=== PATIENT | male | born 1995 | race Hispanic/Latino ===

== ENCOUNTER 2019-09-19 11:08 | Emergency (ER) | payer BC ==
[~2019-09-19] VITALS: Ht 165.1 cm; Wt 64.4 kg
--- OUTSIDE RECORDS SUMMARY | 2019-09-19 11:11 | XMS REPORT ---
[facility] Address Unknown Phone Unavailable Care Team Providers Care Coremaker Bench Name Role Phone Unavailable Unavailable Payers Payer Name Policy Type Policy Number Effective Date Expiration Date Problems This patient has no known problems. Allergies, Adverse Reactions, Alerts Allergy Name Allergy Type Status Severity Reaction(s) Onset Date Inactive Date Treating Clinician Comments No Known Allergies DA Active U 2018-10-03 00:00:00 No Known Allergies DA Active U 2011-01-24 00:00:00 Medications This patient has no known medications. Results Test Description Test Time Test Comments Text Results Atomic Results Result Comments [facility] 2018-10-09 16:01:00 RUN DATE: 10/09/18 [facility] PAGE 1 RUN TIME: 1601 Specimen Inquiry RUN USER: INTERFACE PATIENT: ANG ESPANA LOC: ROHINI #: [id number] AGE/SX: 22/M ROOM: [facility] RE10/03/18[facility] DR: Stanley Robles MD : 97 BED: A DIS: 10/07/18 STATUS: DIS IN TLOC: SPEC #: [id number] RECD: 10/08/18 STATUS: [facility] #: [id number] NATHANIEL: 10/06/18 [facility] DR: Yadira Mata MD ENTERED: 10/08/18 SP TYPE: TERM ILEUM OTHR DR: Bhavin Santamaria MD ORDERED: GROSS COPIES TO: Bhavin Santamaria MD [address] [place] [address] Yadira Mata MD [address] [place] [address] PROCED URES: GROSS (10/09/18-1225) TISSUES: 1. ILEUM, NOS - TERMINAL BX 2. RIGHT COLON - BX 3. LEFT COLON - BX CLINICAL HISTORY COLLECTION DATE: 10/06/2018 RECTAL BLEEDING; COLITIS; ABDOMINAL PAIN POST-OP DIAGNOSIS: COLITIS COMMENT Intradepartmental consultation: DMW FINAL DIAGNOSIS Terminal ileum, biopsy: SMALL BOWEL MUCOSA WITH UNREMARKABLE VILLOUS ARCHITECTURE, PROMINENT LYMPHOID AGGREGATES, AND PATCHY MILD ACUTE INFLAMMATION NEGATIVE FOR MALIGNANCY Right colon, biopsy: ACUTE COLITIS WITH CRYPT DISTORTION AND CRYPT ABSCESSES COMPATIBLE WITH INFLAMMATORY BOWEL DISEASE REACTIVE EPITHELIAL CHANGE PRESENT NEGATIVE FOR DYSPLASIA AND MALIGNANCY CONTINUED ON NEXT PAGE RUN DATE: 10/09/18 [facility] PAGE 2 RUN TIME: 1601 Specimen Inquiry RUN USER: INTERFACE SPEC #: [id number] PATIENT: ANG ESPANA #[id number] (Continued) FINAL DIAGNOSIS (Continued) Left colon, biopsy: ACUTE COLITIS WITH CRYPT DISTORTION AND CRYPT ABSCESSES COMPATIBLE WITH INFLAMMATORY BOWEL DISEASE REACTIVE EPITHELIAL CHANGE PRESENT NEGATIVE FOR DYSPLASIA AND MALIGNANCY RRB/gm D [phone] MACROSCOPIC The first specimen is received in formalin, labeled with the patient's name, identified as "terminal ileum biopsy", and consists of mesa biopsy material measuring 0.4 cm in aggregate, sumbmitted as (1). The second specimen is received in formalin, labeled with the patient's name, identified as "biopsy right colon", and consists of multiple mesa biopsy fragments measuring 0.5 cm in aggregate, submitted as (2). The third specimen is received in formalin, labeled with the patient's name, identified as "left colon biopsy", and consists of mesa biopsy material measuring 0.6 cm in aggregate, submitted as (3). GROSS PERFORMED AT [facility] [address] [place] [address], [place] [address] (p)[phone] MICROSCOPIC MICROSCOPIC PERFORMED AT [facility] All of the stains, including any controls performed, stain appropriately. [facility] [address] [facility], [place] [address] [phone])[phone] PERFORMING SITE Processed at: [facility] [place] [address] [place] [phone] CONTINUED ON NEXT PAGE RUN DATE: 10/09/18 [facility] PAGE 3 RUN TIME: 1601 Specimen Inquiry RUN USER: INTERFACE SPEC #: [id number] PATIENT: STEPHANIE ESPANAFRANCINE #[id number] (Continued) PERFORMING SITE (Continued) [phone] Signed SIGNATURE ON FILE Anibal Daley 10/09/18 1601 END OF REPORT
--- NOTE | 2019-09-19 11:20 | NUR ---
PATIENT ON PHONE ENTIRE TIME. REFERED QUESTIONS TO HIS MOTHER REGARDING HIS MEDICAL CARE AND WHEN ASKED WHERE HIS PAIN WAS
--- NOTE | 2019-09-19 11:21 | NUR ---
WHEN PATIENT ASKED IF HE IS LISTENTING HE STATED, "NOT REALLY"
[2019-09-19 12:19] LABS: CLARITY,URINE CLEAR (CLEAR); COLOR,URINE YELLOW (YELLOW)
[2019-09-19 12:19] LABS: BASOPHILS % 0.3 % (0.0-1.0); EOSINOPHILS # (AUTO) 0.2 (0.0-0.4); EOSINOPHILS % 1.7 % (0.0-6.0); HEMATOCRIT 36.8 % (38.2-49.6); HEMOGLOBIN 10.9 g/dL (14.0-18.0); LYMPHOCYTES # (AUTO) 1.5 (1.0-3.2); MEAN CORPUSCULAR HEMOGLOBIN 23.3 pg (28-32); MEAN CORPUSCULAR HGB CONC 29.6 g/dL (31-35); MEAN CORPUSCULAR VOLUME 78.6 fL (81-99); MONOCYTES # (AUTO) 1.2 (0.2-0.8); MONOCYTES % 13.2 % (4.4-11.3); NEUTROPHILS # (AUTO) 6.4 (2.1-6.9); NEUTROPHILS % 68.2 % (38.7-80.0); PLATELET COUNT 218 x10e3/uL (140-360); RED BLOOD COUNT 4.68 x10e6/uL (4.3-5.7); RED CELL DISTRIBUTION WIDTH 14.9 % (11.7-14.4)
[2019-09-19 12:20] LABS: BILIRUBIN,URINE NEGATIVE (NEGATIVE); KETONES,URINE NEGATIVE (NEGATIVE); LEUKOCYTE ESTERASE ,URINE NEGATIVE (NEGATIVE); NITRITE,URINE NEGATIVE (NEGATIVE); PROTEIN,URINE DIPSTICK 1+ (NEGATIVE); URINE UROBILINOGEN 0.2 mg/dL (0.2 - 1)
[2019-09-19 12:25] LABS: BACTERIA,URINE FEW /HPF; EPITHELIAL CELLS,URINE FEW /LPF; MUCUS,URINE MODERATE (RARE); RBC,URINE 0-5 /HPF (0-5); WBC,URINE (MAN) 0-5 /HPF (0-5)
[2019-09-19 12:29] LABS: INR 0.97; PARTIAL THROMBOPLASTIN TIME 29.2 seconds (23.8-35.5); PROTHROMBIN TIME 13.4 seconds (11.9-14.5)
[2019-09-19 12:39] LABS: ALANINE AMINOTRANSFERASE 9 IU/L (0-55); ALBUMIN 3.5 g/dL (3.5-5.0); ALBUMIN/GLOBULIN RATIO 1.1 (0.8-2.0); ALKALINE PHOSPHATASE 81 IU/L (40-150); AMYLASE 41 U/L (25-125); ANION GAP 11.8 mmol/L (8-16); BLOOD UREA NITROGEN 5 mg/dL (7-26); BUN/CREATININE RATIO 6 (6-25); CALCIUM 8.8 mg/dL (8.4-10.2); CARBON DIOXIDE 26 mmol/L (22-29); CHLORIDE 104 mmol/L (98-107); CREATININE, SERUM 0.86 mg/dL (0.72-1.25); EST GLOMERULAR FILTRATION RATE > 60 ML/MIN (60-); GLUCOSE 93 mg/dL (74-118); LIPASE 17 U/L (8-78); MAGNESIUM 1.9 MG/DL (1.3-2.1); POTASSIUM 3.8 mmol/L (3.5-5.1); SODIUM 138 mmol/L (136-145)
[2019-09-19 13:09] VITALS: BP 130/73
== END 2019-09-19 13:14 | disposition home or self-care (01) ==
LOC: ER 11:08
DX: M54.5 Low back pain (principal); R19.7 Diarrhea, unspecified; R11.10 Vomiting, unspecified; D50.9 Iron deficiency anemia, unspecified
CPT/HCPCS: 36415; 80053; 81001; 82150; 82270; 83690; 83735; 85025; 85610; 85730; 99283